=== PATIENT | male | born 1970 | race Caucasian/White ===

== ENCOUNTER 2021-04-01 14:23 | Emergency (ER) | payer MEDICARE, OTHER, SELFPAY ==
--- NOTE | 2021-04-01 13:56 | ECG_ITS ---
APPROVED REPORT Exam: Resting ECG HR:83 bpm ECG Measurements Heart Rate 83 AXES AL 112 P 56 QRSd 72 QRS 69 QT 364 T 59 QTc 427 Conclusion Normal sinus rhythm with sinus arrhythmia O/w normal ECG Electronically signed by : Andrey Webster, 04/01/2021 21:59:35
[2021-04-01 14:24] VITALS: BP 169/93; PULSE 99; RESP 16; TEMP 36.2; O2SAT 100; BMI 20.7
--- NOTE | 2021-04-01 14:39 | [facility].EDARPALP ---
ED Disposition Clinical Impression: Palpitations Disposition: Home, Self-Care Condition on Discharge: Good Instructions: DI for Palpitations Additional Instructions: Follow-up with your primary care provider in 2 to 3 days for reevaluation. Return to the emergency department for any acute new concerns or worsening symptoms. Stay well-hydrated and drink plenty of noncaffeinated fluids. Referrals: Will Win MD [Staff Physician] - 3 days - Critical Care Critical Care Time: No Attestation: On 04/01/21, the high probability of a clinically significant, sudden or life threatening deterioration of the following system(s) required my full and direct attention, intervention and personal management. The time I documented below is in addition to time spent performing reported procedures but includes the following listed in this critical care notation. Medical Decision Making - Medical Records Medical records reviewed: Yes: I reviewed the patient's medical records. - Bud Inquiry Pt receiving controlled substance: No Vital Signs: 04/01/21 14:24 Temperature 97.1 F L Temperature Source Oral Pulse Rate [Left] 99 H Respiratory Rate 16 Blood Pressure [Right Arm] 169/93 H Blood Pressure Mean [Right Arm] 118 Blood Pressure Position [Right Arm] Sitting 02 Sat by Pulse Oximetry 100 Oxygen Delivery Method Room Air - Lab Data Lab results reviewed: Yes: I reviewed the patient's lab results. Lab Results 04/01/21 14:33: WBC 9.1, RBC 4.91, Hgb 14.6, Hct 45.5, MCV 92.6, MCH 29.7, MCHC 32.0, RDW 13.4, Plt Count 291, MPV 7.4, Neut % (Auto) 67.0, Lymph % (Auto) 26.3, [place] % (Auto) 5.5, Eos % (Auto) 0.7, Baso % (Auto) 0.5, Neut # (Auto) 6.1, Lymph # (Auto) 2.4, [place] # (Auto) 0.5, Eos # (Auto) 0.1, Baso # (Auto) 0.1 04/01/21 14:33: Sodium 141, Potassium 4.0, Chloride 106, Carbon Dioxide 28, Anion Gap 11.0, BUN 2 L, Creatinine 1.10, Estimated Creat Clear 79, Estimated GFR 71, Est GFR ( Amer) 86, Glucose 103 H, Calcium 9.3, Phosphorus 2.6, Magnesium 1.8 Result diagrams: 04/01/21 14:33 04/01/21 14:33 - ECG Data Tracing #1 EKG at 1355 shows a normal sinus rhythm with a rate of 85. No acute ST segment elevation or depression. No hyperacute T waves. Normal intervals. EKG interpreted by me. Medical Decision Narrative: No clinical signs of dehydration. No clinically significant metabolic derangement. No arrhythmia here on EKG. No chest pain, unlikely ACS. Anxiety is a consideration given his report of bilateral hand tingling with heart palpitations. He states symptoms are continuing to improve, so we have discussed following up with PCP outpatient to assure continued improvement. He has no episodes of tremors here and denies any recent seizures. Discharged home. Arrhythmia/Palpitations HPI - General Chief Complaint: Arrhythmia/Palpitations Stated Complaint: palpitations Time Seen by Provider: 04/01/21 14:39 Mode of Arrival: Ambulatory Source of Information: Patient Limitations: No Limitations - History of Present Illness HPI narrative: This is a 50-year-old male with a past medical history significant for epilepsy on Depakote and with VNS stimulator who presents to the emergency department for intermittent episodes of heart palpitations, bilateral hand tingling and tremors that have been ongoing for several weeks. He has been seen in 2 different emergency room and his primary care provider for this within the last several weeks and was ultimately diagnosed with gastroenteritis and hypophosphatemia. He initially had some nausea, vomiting and diarrhea with these episodes but that has since resolved. He states he is getting better, but does continue to have the sensation of heart palpitations and hand tingling with no particular exacerbating or alleviating factors. He has not had any seizures. No urinary symptoms. He has scheduled follow-up with GI. He denies any chest pain, shortness of breath. -
[2021-04-01 15:12] LABS: Basophils # 0.1 K/mm3 (0-0.2); Basophils % 0.5 % (0.1-2.0); Eosinophils # 0.1 K/mm3 (0.0-0.4); Eosinophils % 0.7 % (0.1-12.0); Hematocrit 45.5 % (42.0-52.0); Hemoglobin 14.6 g/dL (14.1-18.0); Lymphocytes # 2.4 K/mm3 (0.7-4.5); Lymphocytes % 26.3 % (10-50); Mean Corpuscular Hemoglobin 29.7 pg (27.0-31.2); Mean Corpuscular Volume 92.6 fl (80-94); Mean Platelet Volume 7.4 fl (7.4-10.4); Monocytes # 0.5 K/mm3 (0.1-1.0); Monocytes % 5.5 % (1.7-9.3); Neutrophils # 6.1 K/mm3 (1.8-7.8); Platelet Count 291 K/mm3 (142-424); Red Blood Count 4.91 M/mm3 (4.60-6.20); Red Cell Distribution Width 13.4 % (11.5-17.5); White Blood Count 9.1 K/mm3 (4.8-10.8)
[2021-04-01 15:20] LABS: Blood Urea Nitrogen 2 mg/dl (9-20); Calcium 9.3 mg/dl (8.4-10.2); Carbon Dioxide 28 mmol/L (22.0-30.0); Chloride 106 mmol/L (98-107); Creatinine Clearance Estimated 79 mL/min (50-200); Estimated Glomerular Filt Rate 71 ml/min (>60); GFR (African American) 86 ML/MIN (>60); Glucose 103 mg/dl (74-100); Magnesium 1.8 mg/dl (1.6-2.3); Phosphorous 2.6 mg/dl (2.5-4.5); Sodium 141 mmol/L (136-145)
[2021-04-01 16:08] VITALS: BP 154/87; PULSE 78; RESP 18; TEMP 36.6; O2SAT 97
== END 2021-04-01 16:09 | disposition home or self-care (01) ==
PROVIDERS: Emergency Provider Emergency Medicine; PCP Family Medicine
DX: R00.2 Palpitations (principal); G40.909 Epilepsy, unspecified, not intractable, without status epilepticus; Z79.899 Other long term (current) drug therapy; Z88.8 Allergy status to other drugs, medicaments and biological substances
CPT/HCPCS: 80048; 83735; 84100; 85025; 93005; 99282

== ENCOUNTER → 2021-04-06 09:21 | Outpatient (CLI) | payer MEDICARE, OTHER, SELFPAY ==
[2021-04-06 10:41] LABS: Troponin I < 0.01 ng/ml (0.00-0.034)
== END ==
PROVIDERS: Visit Provider Nurse Practitioner Family
DX: R00.2 Palpitations (principal); R07.9 Chest pain, unspecified; R94.31 Abnormal electrocardiogram [ECG] [EKG]
CPT/HCPCS: 36415; 84484; 93270

== ENCOUNTER → 2021-04-08 06:36 | Outpatient (CLI) | payer MEDICARE, OTHER, SELFPAY ==
--- NOTE | 2021-04-08 06:46 | NM_ITS ---
APPROVED REPORT Exam: Nuclear Stress Test Indication: SOB, Fatigue, Tobacco use, Family history Patient Location: Outpatient Stress Tech: Eliza Pimentel [place] Tech:Ewelina RoblesSERGE RT(R)(N) Ht: 5 ft 11 in Wt: 147 lbs HR: 92 bpm BP: 162/95 mmHg BSA: 1.85 m2 BMI: 20.5 History: SOB, Fatigue, Tobacco use, Family history Procedure: Patient received a 0.4 mg of intravenous Lexiscan, resting heart rate 92 bpm, resting blood pressure 162/95 mmHg, with Lexiscan maximum heart rate achived was 122 bpm which is Less than 85 % of the maximum predicted heart rate and blood pressure was 171/96 mmHg. With Lexiscan, patient denied any complaint of chest pain. Electrocardiogram Resting electrocardiogram shows sinus rhythm, with Lexiscan there is less than 1.[address] segment depression noted from the baseline EKG. The EKG portion of the Lexiscan is nondiagnostic. Cardiac Stress and Resting SPECT Images: Cardiac Stress and Resting SPECT images were obtained using technetium 99m Myoview 31.6 mCi stress and 10.07 mCi at rest. Gated SPECT for analysis of segmental wall motion and calculation of the ejection fraction also done, prone images were also obtained. Cardiac stress and resting SPECT images show uniform myocardial activity without segmental perfusion abnormality, computer derived ejection fraction is 51% with no regional wall motion abnormality, right ventricle is normal size and contractility. Conclusion: 1. The EKG portion of the Lexiscan is nondiagnostic 2. No scintigraphic evidence of reversible ischemia seen, computer derived ejection fraction 51% with no regional wall motion abnormality, right ventricle is normal size and contractility 3. Normal Lexiscan Myoview study. Electronically signed by : Thomas Arzola, 04/08/2021 15:06:14
--- NOTE | 2021-04-08 06:46 | CA_ITS ---
APPROVED REPORT Exam: Pharmacologic Technologist: Eliza Pimentel, Ht: 5 ft 11 in Wt: 147 lbs BSA: 1.85 m2 HR: 92 bpm BP: 162/95 mmHg Rhythm: NSR, INFERIORLY AND LATERAL ST ABNS Medical History Medical History: Smoking Medications: Divalproex,,,,, Allergies: diazepam, codeine Cardiac Risk Factors: Smoking Stress Test Details Test: LEXISCAN HR Resting HR: 86 bpm Max Heart Rate (APMHR): 172.045598 bpm Max HR Achieved: 123 bpm Target HR (85% APMHR): 146.363387 bpm % of APMHR: 71.51 Recovery HR: 94 bpm BP Resting BP: 162/95 mmHg Max BP: 171/96 mmHg Recovery BP: 159.0/99.0 mmHg ECG Resting ECG: NSR, INFERIORLY AND LATERAL ST ABNS Clinical Exercise duration: 04:01 min Highest Stage Achieved: Exercise capacity: 1.0 METs Stress ECG Conclusion PT HAD MILD SOA, NAUSEA, LIGHTHEADED. NO CP. NO ARRHYTHMIAS/ECTOPY. EXAGGERATION OF BASELINE ABNS. NON-DIAGNOSTIC LEXISCAN STRESS. MYOVIEW IMAGES REPORTED SEPERATELY. HIGH BP. Electronically signed by : Thomas Arzola, 04/08/2021 11:01:01
--- NOTE | 2021-04-08 07:18 | CA_ITS ---
APPROVED REPORT EXAM: Comprehensive 2D, Doppler, and color-flow Echocardiogram Certified Medical Asst: Tamara Tello CRT Ht: 5 ft 11 in Wt: 147lbs BSA: 1.85 BP: 139/95 mmHg Indications: Chest Pain, Shortness of Breath, Palpitations, smoker, abn ekg 2D Dimensions LVOT 1.94 cm (M/F) 1.5-2.5 LA Volume 22.80 mL LA Volume Index 12.30 mL/m2 (M/F) 16-34 M-Mode Dimensions RVDd 1.80 cm (0.9-2.6) LA Diam 2.93 cm (1.9-4.0) LVDd 4.35 cm (3.5-5.7) Ao Diam 3.37 cm (2.0-3.7) LVDs 2.67 cm (3.5-5.7) IVSd 1.48 cm (0.6-1.1) PWd 0.52 cm (0.6-1.1) EF (Teich) 69.20% FS 38.60% EDV (Teich) 85.40 mL ESV (Teich) 26.30 mL LV Diastology E Decel Time 113.00 (160-240 msec) E/A Ratio 1.16 MED E' 6.60 (< 7 cm/sec) MED A' 7.60 cm/s E'/MED E' Ratio 10.65 (>14) LAT E' 10.00 (<10 cm/sec) LAT A' 12.30 cm/s E/LAT E' Ratio 7.03 (>14) Aortic Valve AO Peak GR. 9.90 mmHg Mitral Valve MV E Max Vadim. 70.00 (40-130 cm/s) MV A Velocity 60.00 (40-130 cm/s) E/A Ratio 1.16 MV Decel. Time 113.00 (160-240 ms) MV PHT 33.00 ms Pulmonary Valve PV Peak Velocity 74.00 (50-150 cm/s) Tricuspid Valve TR P. Velocity 280.00 cm/s RAP Estimate 10.00 mmHg RVSP 41.40 mmHg Left Ventricle Left atrium is normal size, left ventricle is normal size, there is no concentric left ventricular hypertrophy, visually estimated ejection fraction 55% with no regional wall motion abnormality. Diastolic parameters are within normal range. Right Ventricle Right atrium and right ventricle are normal size and contractility. Aortic Valve Aortic valve is normal, there is no aortic stenosis or aortic insufficiency. Mitral Valve Mitral valve grossly normal, there is trace mitral regurgitation. Tricuspid Valve Tricuspid grossly normal, there is trace tricuspid regurgitation, tricuspid regurgitation jet velocity is inadequate for calculation of the right ventricular systolic pressure. Pulmonic Valve Pulmonic valve is poorly visualized. Great Vessels Aortic root is normal size. Inferior vena cava is normal size with normal inspiratory collapse. Pericardium No significant pericardial effusion noted. Conclusion 1. Normal left ventricular size, preserved left ventricular systolic function, visually estimated ejection fraction 55% with no regional wall motion abnormality, diastolic parameters are within normal range. 2. Trace mitral and tricuspid regurgitation. 3. No significant pericardial effusion noted. Electronically signed by : Thomas Arzola, 04/08/2021 15:35:15
== END ==
PROVIDERS: PCP Family Medicine; Visit Provider Nurse Practitioner Family
DX: R00.2 Palpitations (principal); R07.9 Chest pain, unspecified; R94.31 Abnormal electrocardiogram [ECG] [EKG]
CPT/HCPCS: 78452; 93017; 93306; A9502; J2785

== ENCOUNTER → 2021-09-27 13:39 | Outpatient (CLI) | payer MEDICARE, OTHER, SELFPAY ==
--- NOTE | 2021-09-27 13:39 | CT_ITS ---
PROCEDURE INFORMATION: Exam: CT Chest Without Contrast; Diagnostic Exam date and time: 09/27/2021 1:39 PM Age: 51 years old Clinical indication: Shortness of breath; Patient HX: Chest pain and SOA since February. Smoker; Additional info: Cp/tob abuse TECHNIQUE: Imaging protocol: Diagnostic computed tomography of the chest without contrast. Radiation optimization: All CT scans at this facility use at least one of these dose optimization techniques: automated exposure control; mA and/or kV adjustment per patient size (includes targeted exams where dose is matched to clinical indication); or iterative reconstruction. COMPARISON: No relevant prior studies available. FINDINGS: Tubes, catheters and devices: Device seen in the left anterior chest. Lungs: A 2 mm nodule is seen in right lower lobe on image 54 of series 3. For patients at low risk (minimal or absent history of smoking and of other known risk factors), no routine follow-up is indicated. For patients at high risk (history of smoking or of other known risk factors), consider optional CT Chest at 12 months. (Reference: Ale) Pleural spaces: Unremarkable. No pneumothorax. No pleural effusion. Heart: Three-vessel coronary artery calcifications. Aorta: Unremarkable. No aortic aneurysm. Lymph nodes: Unremarkable. No enlarged lymph nodes. Bones/joints: Unremarkable. No acute fracture. Soft tissues: Unremarkable. IMPRESSION: 1. A 2 mm nodule is seen in right lower lobe on image 54 of series 3. For patients at low risk (minimal or absent history of smoking and of other known risk factors), no routine follow-up is indicated. For patients at high risk (history of smoking or of other known risk factors), consider optional CT Chest at 12 months. (Reference: Ale) 2. Three-vessel coronary artery calcifications. REFERENCES: Ale King et al. Guidelines for Management of Incidental Pulmonary Nodules Detected on CT Images: From the Fleischner Society 2017. Radiology. 2017;284(1):228-243.
== END ==
PROVIDERS: PCP Family Medicine; Visit Provider Physician Assistant
DX: R00.2 Palpitations (principal); R06.00 Dyspnea, unspecified; R07.89 Other chest pain; R94.31 Abnormal electrocardiogram [ECG] [EKG]; Z72.0 Tobacco use
CPT/HCPCS: 71250

== ENCOUNTER → 2021-10-05 10:16 | Outpatient (CLI) | payer MEDICARE, OTHER, SELFPAY ==
[2021-10-05 10:35] LABS: Basophils # 0.1 K/mm3 (0-0.2); Basophils % 0.3 % (0.1-2.0); Eosinophils # 0.2 K/mm3 (0.0-0.4); Eosinophils % 0.9 % (0.1-12.0); Hematocrit 42.6 % (42.0-52.0); Hemoglobin 14.4 g/dL (14.1-18.0); Lymphocytes # 2.3 K/mm3 (0.7-4.5); Lymphocytes % 10.8 % (10-50); Mean Corpuscular Hemoglobin 31.2 pg (27.0-31.2); Mean Platelet Volume 7.8 fl (7.4-10.4); Monocytes # 0.9 K/mm3 (0.1-1.0); Monocytes % 4.3 % (1.7-9.3); Neutrophils # 18.3 K/mm3 (1.8-7.8); Neutrophils % 83.7 % (37.0-80.0); Platelet Count 332 K/mm3 (142-424); Red Blood Count 4.63 M/mm3 (4.60-6.20); Red Cell Distribution Width 13.3 % (11.5-17.5); White Blood Count 21.8 K/mm3 (4.8-10.8)
[2021-10-05 10:36] LABS: MANUAL DIFFERENTIAL MANUAL DIFFERENTIAL (MANUAL DIFF)
[2021-10-05 11:10] LABS: Lymphocytes % 8 % (10-50); Monocytes % 3 % (2-9); Neutrophils % 89 % (42-76); Platelet Estimate Normal; RBC Morphology Normal; Total Cells Counted 100
[2021-10-05 12:05] LABS: Potassium 3.9 mmoL/L (3.5-5.1)
[2021-10-05 12:08] LABS: Blood Urea Nitrogen 7 mg/dl (9-20); Carbon Dioxide 30 mmol/L (22.0-30.0); Estimated Glomerular Filt Rate 59 ml/min (>60); GFR (African American) 71 ML/MIN (>60)
[2021-10-05 12:09] LABS: Calcium 9.4 mg/dl (8.4-10.2); Glucose 95 mg/dl (74-100)
[2021-10-05 17:10] LABS: Anion Gap 11.9 mEq/L (5-15); Chloride 102 mmol/L (98-107); Sodium 140 mmol/L (136-145)
== END ==
PROVIDERS: Visit Provider Physician Assistant
DX: R00.2 Palpitations (principal); R06.00 Dyspnea, unspecified; R07.9 Chest pain, unspecified; R94.31 Abnormal electrocardiogram [ECG] [EKG]; Z72.0 Tobacco use; Z01.812 Encounter for preprocedural laboratory examination; Z11.52 Encounter for screening for COVID-19
CPT/HCPCS: 36415; 80048; 85007; 85025; C9803; U0003; U0005

== ENCOUNTER 2021-10-07 08:16 | Day surgery (SDC) | payer MEDICARE, OTHER, SELFPAY ==
[2021-10-07] VITALS (11 sets, daily range): BP systolic 98–184; BP diastolic 57–119; PULSE 53–88; RESP 16–20; TEMP 36.7; O2SAT 91–100; BMI 22.0
--- NOTE | 2021-10-07 07:25 | IR_ITS ---
APPROVED REPORT Patient Location: Outpatient Curing Press Operator: SERGE Zavala RT (R) PROCEDURES Left heart catheterization Left ventriculogram Selective coronary angiogram Informed consent was obtained prior to the procedure. COMPLICATIONS None Estimated Blood Loss: Less than 10 mls TECHNIQUE One percent lidocaine used to anesthetize the right anterior aspect of the wrist. The right radial artery was accessed via the Seldinger technique. A 6 Sami sheath was placed in the right radial artery. 2.5 mg of verapamil, 800 mcg of nitroglycerin, 1mg Lidocaine and 5000 U Heparin were given through the arterial sheath. The Poppa catheter was also used to perform left heart catheterization, left ventriculogram and selective coronary angiogram. At the end of the procedure the sheath was removed good hemostasis was achieved using Traclet band, patient was transferred to the postop holding area in stable condition. ANGIOGRAPHIC RESULTS The left main artery Normal The left anterior descending artery Has proximal and mid vessel diffuse 20% narrowing. 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 Aggressive risk factor modification 2. LDL less than 55 3. Avoidance of tobacco products Electronically signed by : Will Win MD 10/07/2021 10:32:23
== END 2021-10-07 12:37 | disposition home or self-care (01) ==
LOC: CATHLAB 08:17
PROVIDERS: PCP Family Medicine; Visit Provider Internal Medicine
DX: R93.89 Abnormal findings on diagnostic imaging of other specified body structures; R94.31 Abnormal electrocardiogram [ECG] [EKG]; F17.210 Nicotine dependence, cigarettes, uncomplicated; I25.118 Atherosclerotic heart disease of native coronary artery with other forms of angina pectoris; Z79.899 Other long term (current) drug therapy
CPT/HCPCS: 93458; 99152; C1725; C1769; J1644; Q9967